=== PATIENT | male | born 1965 | race Caucasian/White ===

== ENCOUNTER 2020-04-29 18:24 | Emergency (ER) | payer BC, OTHER ==
[~2020-04-29] VITALS: Ht 180 cm; Wt 83.0 kg
--- NOTE | 2020-04-29 18:42 | ED Lower Extremity ---
General Chief Complaint: Lower Extremity Stated Complaint: R ANKLE PAIN Source: patient Exam Limitations: no limitations History of Present Illness Date Seen by Provider: Apr 29, 2020 Time Seen by Provider: 18:40 Initial Comments ER by private vehicle with reports of a large laceration to the posterior right ankle. This occurred from switching buckets on the tractor, he thought it was all the way on the ground but it was not. When he heard the hydraulics backup did fill the rest of the way which was only a few inches but enough to lacerate the posterior right ankle. Tetanus is up-to-date. Onset: just prior to arrival Severity: moderate Pain/Injury Location: right ankle Method of Injury: direct blow Modifying Factors: Worse With Movement Allergies and Home Medications Allergies Coded Allergies: No Known Drug Allergies (Unverified , 04/29/20) Home Medications Amoxicillin/Potassium Clav 1 Each Tablet, 1 EACH PO BID Prescribed by: ADRIANE HALL on 04/29/201945 Patient Home Medication List Home Medication List Reviewed: Yes Review of Systems Constitutional: see HPI EENTM: see HPI Respiratory: no symptoms reported Cardiovascular: no symptoms reported Genitourinary: no symptoms reported Musculoskeletal: no symptoms reported Skin: no symptoms reported Psychiatric/Neurological: No Symptoms Reported Past Adnlyqq-Qbsfzk-Ijyeqv Hx Patient Social History Alcohol Use: Occasionally Uses Recreational Drug Use: No Smoking Status: Never a Smoker Recent Foreign Travel: No Contact w/Someone Who Travel: No Recent Hopitalizations: No Physical Abuse: No Sexual Abuse: No Immunizations Up To Date Tetanus Booster (TDap): Less than 5yrs Past Medical History Surgeries: No Respiratory: No Cardiac: No Neurological: No Genitourinary: No Gastrointestinal: No Musculoskeletal: No Endocrine: No HEENT: No Cancer: No Psychosocial: No Integumentary: No Blood Disorders: No Physical Exam Vital Signs Vital Signs - First Documented 04/29/20 18:28 Temp 36.5 Pulse 77 Resp 18 B/P (MAP) 177/100 (125) Pulse Ox 97 Capillary Refill : Height, Weight, BMI Height: '" Weight: lbs. oz. kg; BMI Method: General Appearance: WD/WN, no apparent distress Respiratory: no respiratory distress, no accessory muscle use Hips: bilateral hip non-tender, bilateral hip normal inspection, bilateral hip normal range of motion Legs: bilateral leg non-tender, bilateral leg normal inspection, bilateral leg normal range of motion Knees: bilateral knee non-tender, bilateral knee normal inspection, bilateral knee normal range of motion Ankles: right ankle pain, right ankle soft tissue tenderness, right ankle other (large laceration of the posterior right ankle, minimal active bleeding, there is exposed Achilles tendon, however this is without apparent laceration and he retained the ability to plantar flex the foot against resistance) Feet: bilateral foot non-tender, bilateral foot normal inspection, bilateral foot normal range of motion Neurologic/Tendon: normal sensation, normal motor functions, normal tendon functions Neurologic/Psychiatric: alert, normal mood/affect, oriented x 3 Skin: normal color, warm/dry Procedures/Interventions Wound Location: Lower Extremities Wound Length (cm): 13 Wound's Depth, Shape: linear Wound Explored: clean Irrigated w/ Saline (ccs): 300 Anesthesia: 1% Lidocaine Suture: Ethlion Suture Size: 4-0 Number of Sutures: 14 (13 are horizontal mattress one is simple interrupted) Layer Closure?: 1 Number Deep Layer Sutures: 0 Progress/Results/Core Measures Results/Orders My Orders Orders - ADRIANE HALL [employer] Lidocaine 1% Inj 20 Ml (Xylocaine 1% Inj (04/29/20 18:45) Rx-Hydrocodone/Apap 5-325 Mg (Rx-Vicodin (04/29/20 18:45) Ceftriaxone For Im Use (Rocephin For Im (04/29/20 18:45) Lidocaine 1% Inj 20 Ml (Xylocaine 1% Inj (04/29/20 18:45) Ankle, Right, 3 Views (04/29/20 18:36) Medications Given in ED Current Medications Medications Dose Ordered Sig/Madisyn Route Start Time Stop Time Status Last Admin Dose Admin Acetaminophen/ Hydrocodone Bitart 1 ea Q4H PRN PO 04/29/20 18:45 04/29/20 19:08 1 EA Lidocaine HCl 2.1 ml ONCE ONCE INJ 04/29/20 18:45 04/29/20 18:47 DC 04/29/20 19:08 2.1 ML Lidocaine HCl 20 ml ONCE ONCE INJ 04/29/20 18:45 04/29/20 18:47 DC 04/29/20 19:08 20 ML Vital Signs/I&O 04/29/20 18:28 Temp 36.5 Pulse 77 Resp 18 B/P (MAP) 177/100 (125) Pulse Ox 97 Departure Impression Primary Impression: Leg laceration Disposition: 01 HOME, SELF-CARE Condition: Improved Departure-Patient Inst. Decision time for Depature: 19:43 Referrals: NO,LOCAL PHYSICIAN (PCP/Family) Primary Care Physician Patient Instructions: Laceration Repair With Stitches (DC) Add. Discharge Instructions: 1. Wear the walking boot when you are up moving around for the next 2 weeks. Stitches should be removed here in about 12 days. Watch for any sign of infection such as redness or severe swelling or fevers. Keep this clean dry and covered at all times. He can shower leading water run over it briefly in about 48 hours but the rest of the time it should be kept covered pain. All discharge instructions reviewed with patient and/or family. Voiced understanding. Scripts Amoxicillin/Potassium Clav (Augmentin 875-125 Tablet) 1 Each Tablet 1 EACH PO BID, #10 TAB 0 Refills Prov: ADRIANE HALL APRN 04/29/20 ADRIANE HALL APRN Apr 29, 2020 18:42
[2020-04-29] MEDS ORDERED: RX-HYDROCODONE/APAP 5/325 MG #4 TAB PK PO PRN (18:45)
[2020-04-29] MEDS ORDERED: LIDOCAINE 1% INJ 20 ML 20 ML VIAL INJ ONE ×2 (18:45)
[2020-04-29] MEDS ORDERED: cefTRIAXone 1,000 MG/2.86 ml vial (IM ONLY) IM SCH (18:45)
--- OUTSIDE RECORDS SUMMARY | 2020-04-29 18:47 | XMS REPORT ---
Author Ruth Nunez [facility] Address [address] [place], [place] [id number] Care Team Providers Care Lease Administrator Name Role Phone MARCK LAWSON PCP MARCK LAWSON PreferredProvider Allergies and Adverse Reactions Not available. Plan of Treatment Not available. Medications Not available. Problem List Description Status Onset Low testosterone in male Active 11/24/2019 Vital Signs Date Time BP-Sys(mm[Hg] BP-Nelda(mm[Hg]) HR(bpm) RR(rpm) Temp WT HT HC BMI BSA BMI Percentile O2 Sat(%) 11/23/2019 4:29:00 PM 128 mm[Hg] 78 mm[Hg] 82 {beats}/min 18 rpm 98.4 F 190 lbs 71 in 26.4993 kg/m2 2.0778 m2 98 % Social History Name Description Comments Uses seatbelts Tobacco Current every day smoker Alcohol Current some day History of Procedures Date Ordered Description Order Status 11/23/2019 12:00 AM Decadron 8mg Injection Reviewed 11/23/2019 12:00 AM Depo-Medrol 80mg Injection Reviewed 11/23/2019 12:00 AM THER/PROPH/DIAG INJ SC/IM Reviewed 12/01/2019 12:00 AM COMPLETE CBC W/AUTO DIFF WBC Returned 12/01/2019 12:00 AM COMPREHEN METABOLIC PANEL Returned 12/01/2019 12:00 AM LIPID PANEL Returned 12/01/2019 12:00 AM Prostate Cancer Screening Returned 12/01/2019 12:00 AM ASSAY OF TOTAL TESTOSTERONE Returned 12/01/2019 12:00 AM ROUTINE VENIPUNCTURE Reviewed Results Summary Not available. History Of Immunizations Not available. History of Past Illness Name Date of Onset Comments No significant medical history Low testosterone in male 11/24/2019 URI with cough and congestion Nov 23 2019 4:30PM Nasal congestion with rhinorrhea Nov 23 2019 4:30PM Low testosterone in male Nov 23 2019 4:30PM Establishing care with new doctor, encounter for Nov 23 2019 4:30PM Low testosterone in male Dec 01 2019 7:40AM Fatigue Dec 01 2019 7:40AM Hyperlipemia Dec 01 2019 7:40AM Prostate cancer screening Dec 01 2019 7:40AM Payers Insurance Name Company Name Plan Name Plan Number Policy Number [place] Group Number Start Date [facility] [id number] N/ A History of Encounters Visit Date Visit Type Provider 12/01/2019 Laboratory MARCK MCCLENDON 11/23/2019 Office visit MARCK MCCLENDON
--- OUTSIDE RECORDS SUMMARY | 2020-04-29 18:47 | XMS REPORT | Continuity of Care Document ---
Author Organization Unknown Address Unknown Phone Unavailable Allergies There is no data. Medications There is no data. Problems There is no data. Procedures There is no data. Results There is no data. Encounters ACCT No. Visit Date/Time Discharge Status Pt. Type Provider Facility Loc./Unit Complaint [id number] 12/01/2019 07:29:11 12/01/2019 23:59: 59 [facility] Outpatient MARCK LAWSON [id number] 11/23/2019 15:12:42 11/23/2019 23:59: 59 [facility] Outpatient MARCK LAWSON
--- NOTE | 2020-04-29 19:12 | Diagnostic Imaging Report ---
ANKLE, RIGHT, 3 VIEWS COMPARISON: None available. INDICATION: Trauma to posterior lower leg, laceration. TECHNIQUE: Non-weight bearing AP, oblique, and lateral views. FINDINGS: No fracture or traumatic malalignment. No osteochondral lesion of the talar dome. There is a large laceration in the posterior aspect of the lower leg at the expected region of the Achilles. Soft tissue gas is present. IMPRESSION: 1. No acute fracture. 2. Large laceration of the posterior lower leg may involve the Achilles tendon. No radiopaque foreign body. Dictated by: Dictated on workstation # [id number]
--- NOTE | 2020-04-29 19:40 | NUR ---
14 sutures placed to right posterior ankle laceration by maritza walker.
[2020-04-29] MEDS ORDERED: AMOX-358 PO (19:46)
[2020-04-29 19:49] VITALS: BP 134/67
== END 2020-04-29 19:54 | disposition home or self-care (01) ==
LOC: ER 18:26
DX: S91.011A Laceration without foreign body, right ankle, initial encounter (principal); W22.8XXA Striking against or struck by other objects, initial encounter
CPT/HCPCS: 12035; 73610

== ENCOUNTER 2020-05-10 15:36 | Emergency (ER) | payer BC ==
[~2020-05-10 15:36] MED LIST: AMOX-358 PO
[2020-05-10 15:45] VITALS: BP 143/72
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
== END 2020-05-10 16:25 | disposition home or self-care (01) ==
LOC: EDUNIT# 15:36 → ER 15:38
DX: S91.311D Laceration without foreign body, right foot, subsequent encounter (principal); X58.XXXD Exposure to other specified factors, subsequent encounter
CPT/HCPCS: 99281